=== PATIENT | female | born 1950 | race Caucasian/White ===

== ENCOUNTER → 2020-12-16 11:08 | Outpatient (CLI) | payer MEDICARE, OTHER, SELFPAY ==
[2020-12-16 14:03] LABS: Coronavirus 19 IgG Antibody Negative (Negative); Coronavirus 19 IgM Antibody Negative (Negative)
== END ==
PROVIDERS: Visit Provider Internal Medicine Gastroenterology
DX: Z01.818 Encounter for other preprocedural examination (principal); Z20.822 Contact with and (suspected) exposure to COVID-19; Z13.810 Encounter for screening for upper gastrointestinal disorder
CPT/HCPCS: 36415; 86328

== ENCOUNTER 2020-12-18 11:32 | Day surgery (SDC) | payer MEDICARE, SELFPAY ==
[2020-12-13 14:42] VITALS: BMI 24.4
[2020-12-18 11:53] VITALS: BP 168/79; PULSE 84; RESP 18; TEMP 36.2; O2SAT 98
[2020-12-18 12:06] VITALS: O2SAT 98
--- NOTE | 2020-12-18 12:17 | P.PCN_ITS ---
[facility] Procedure Note Procedure Note:: Upper Endoscopy Procedure Report: Esophagogastroduodenoscopy with cold biopsies Endoscopost: Blake Riley II, MD Referring Physician: Graham Baumann MD Date of Procedure: December 18, 2020 Equipment: Olympus GIF 190 standard upper endoscope Sedation: MAC sedation Indications: Mrs. Sims is a 70-year-old female with longstanding GERD and dyspepsia. The patient did have side effects with prior treatment using Nexium and Protonix. More recently she has done better with omeprazole. She does state that in late September 2020 she had stabbing throat pain. This did resolve with treatment. She later developed diarrhea. When the diarrhea resolved she developed constipation. The patient chronically has epigastric abdominal discomfort, bloating, nausea, early satiety and some belching. She does have intermittent regurgitation. She had an EGD in August 2016 (reflux esophagitis) and later had an EGD with me in March 2018 showing nonerosive GERD with esophageal dysmotility and small 2 cm hiatal hernia. She also had bile reflux with reactive gastropathy. Her father had a ruptured esophagus. Procedure: Prior to the procedure, a history and physical exam was performed, and patient's medications and allergies were reviewed. The risks, benefits and alternatives of the sedation and procedure were discussed with the patient. All questions were answered and informed consent was obtained. The patient was brought to the procedure room. Patient identification and proposed procedure were verified by the physician and the nurse. The patient was placed in a left lateral decubitus position and the scope was passed under direct vision. Throughout the procedure, the patient's blood pressure, pulse, and oxygen saturations were monitored continuously. The upper GI endoscopy was accomplished without difficulty. The patient tolerated the procedure well. Findings: The scope was passed directly into the upper esophagus and advanced to the third portion of the duodenum. The post bulbar duodenum and duodenal bulb were normal with normal mucosa and conniventes. The scope was withdrawn through a normal duodenal bulb and pylorus into the stomach. There was bile reflux with moderate linear reactive gastropathy of the antrum and body of the stomach. The remainder of the fundus of the stomach were grossly normal. Upon retroflexion there was a 3 cm medium sized hiatal hernia. 2 biopsies were taken in the antrum and along the lesser curvature for histology to rule out gastritis and/or H pylori. The scope was then withdrawn into the esophagus. There was no evidence of reflux esophagitis or Schatzki's ring. There were 2 tongues of salmon- colored mucosa that were biopsied to rule out short segment Salgado's esophagus. There were strong tertiary contractions and evidence of moderate esophageal dysmotility. The remainder of the esophageal mucosa was normal. Impression: 1. Nonerosive GERD with moderate esophageal dysmotility and medium sized 3 cm hiatal hernia 2. Bile reflux with linear reactive gastropathy Plan: I will follow-up the biopsies. 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 She had inquired about antireflux surgery (fundoplication surgery). I do feel that she would have greater risk for gas bloat and may have more significant issues with swallowing based upon esophageal dysmotility. We will discuss additional dietary measures and treatment options. The patient does have obstipation with IBS (alternating).
[2020-12-18 12:30] VITALS: BP 95/52; PULSE 72; RESP 18; TEMP 36.3; O2SAT 96
[2020-12-18 12:40] VITALS: BP 109/48; PULSE 78; RESP 18; O2SAT 98
[2020-12-18 12:50] VITALS: BP 112/64; PULSE 66; RESP 18; O2SAT 98
[2020-12-18 13:13] VITALS: BP 134/88; PULSE 70; RESP 18; O2SAT 100
--- NOTE | 2020-12-18 15:15 | HMH.ANESCL ---
[facility] Anesthesia Checklist - Patient Identification Patient Identification: Arm Band - Structural Data Admitted From: Home Planned Operative Procedure/s: egd Consent for Planned Operative Procedure(s) Verified: Yes Verified Documents: Surgical Consent, History and Physical - NPO Status Verified Time NPO: 00:00 - Additional verifications Anesthesia Reactions: No - Airway Assessment C-Spine Mobility Assessed: Yes (mp2) TMJ Mobility Assessed: Yes Dentition: Good Dentition - Neurological Assessment Level of Consciousness: Awake, Alert - Anesthesia Plan Anesthesia Risk discussed: Yes Anesthesia Plan: Verified ASA Class: II Anesthesia Type: MAC [facility] History I have reviewed the patient's past medical history: Yes Medical History: Reports:: Gastroesophageal Reflux Disease(GERD) Denies:: Cancer, Diabetes Mellitus Type 1, Diabetes Mellitus Type 2, MRSA *Have you ever received a pneumonia vaccine?: No *Have you received a flu vaccine this season?: No Anesthesia experience/problems:: nac Other Surgeries: Yes: Cholecystectomy, , Hysterectomy-Total Amputation: No Fractures: No - *Social History Alcohol Intake: never Substance Use Type: denies use *Occupational Status:: retired Housing: house *Travel in the last 8 weeks: None Family Hx:: No significant family history
== END 2020-12-18 13:29 | disposition home or self-care (01) ==
LOC: OUTP 11:38
PROVIDERS: PCP Family Medicine; Visit Provider Internal Medicine Gastroenterology
PROC: 0DJ08ZZ Inspection of Upper Intestinal Tract, Via Natural or Artificial Opening Endoscopic (ICD-10-PCS; CPT 43235; principal; 2020-12-18 12:30)
DX: K21.9 Gastro-esophageal reflux disease without esophagitis (principal); K22.4 Dyskinesia of esophagus; K44.9 Diaphragmatic hernia without obstruction or gangrene; K31.9 Disease of stomach and duodenum, unspecified; Z83.79 Family history of other diseases of the digestive system; Z88.1 Allergy status to other antibiotic agents; Z91.040 Latex allergy status
CPT/HCPCS: 43239; 88305